=== PATIENT | male | born 1960 | race Caucasian/White ===

== ENCOUNTER 2016-12-02 18:24 | Emergency (ER) | payer OTHER ==
--- NOTE | 2016-12-02 18:29 | PDOC ---
Rapid Medical Evaluation Time Seen by Provider: 12/02/16 18:27 Medical Evaluation: Allergies Allergy/AdvReac Type Severity Reaction Status Date / Time filgrastim [From Neupogen] Allergy Verified 12/02/16 18:26 pegfilgrastim [From Neulasta] Allergy Verified 12/02/16 18:26 12/02/16 18:27 I have performed a brief in-person evaluation of this patient. The patient presents with a chief complaint of: req foe HIV testing Pertinent physical exam findings: L/S CTAB The patient will proceed to the ED for further evaluation. Pt had sexual intercourse with a male HIV+ partner x2d ago. Noticed the "tip of his condom was broken". Pt last tested in Jun 2016. Partner status " non detectable level and on daily medication"
[2016-12-02 18:32] VITALS: BP 156/89; PULSE 78; TEMP 98.2; BMI 28.6
--- NOTE | 2016-12-02 19:27 | PDOC ---
Post Exposure HPI - General Chief Complaint: Non EmpBld/Body Flud Exposure Stated Complaint: EVALUATION Time Seen by Provider: 12/02/16 18:27 History Source: Patient Exam Limitations: No Limitations - History of Present Illness Initial Comments: 12/02/16 19:23 Patient is here status post exposure to open known HIV-positive patient. Is homosexual, had anal intercourse, are using condoms the condom broke. Patient states partner revealed his positive HIV status 24 hours after exposure, however is taking antiretrovirals and his viral load is undetectable. Patient was evaluated at HIV testing center who recommended him coming to tertiary center for evaluation for prophylaxis medications and testing. States most recent HIV and hepatitis C testing done 3 months ago was negative, and otherwise healthy. 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 No: Symptoms Reported, Fever, Loss of Appetite, Malaise HEENTM: Yes: See HPI. No: Symptoms Reported Respiratory: Yes: See HPI. No: Symptoms reported, Cough ABD/GI: Yes: See HPI. No: Symptoms Reported, Nausea Integumentary: Yes: See HPI. No: Symptoms Reported All Other Systems: Reviewed and Negative *Physical Exam - Vital Signs Last Vital Signs Temp Pulse Resp BP Pulse Ox 98.2 F 78 18 156/89 100 12/02/16 18:28 12/02/16 18:28 12/02/16 18:28 12/02/16 18:28 12/02/16 18:28 - Physical Exam General Appearance: Yes: Nourished, Appropriately Dressed, Apparent Distress, Mild Distress HEENT: positive: [place], Normal ENT Inspection, TMs Normal, Pharynx Normal Neck: positive: Supple Respiratory/Chest: positive: Lungs Clear, Normal Breath Sounds Extremity: positive: Normal Capillary Refill, Normal Inspection, Normal Range of Motion Integumentary: positive: Normal Color, Dry, Warm 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 Will follow-up with his private physician for repeat baseline testing within the week, and follow-up as needed *DC/Admit/Observation/Transfer Diagnosis at time of Disposition: HIV exposure - Discharge Dispostion Disposition: HOME Condition at time of disposition: Stable Admit: No - Referrals - Patient Instructions Printed Discharge Instructions: How to Handle Body Fluid Exposure -- Non- Healthcare Worker (At Home, [facility]gi Additional Instructions: Follow-up with your physician for baseline hepatitis B and C and HIV testing and possible baseline chemistries and CBC for potential future need for treatment. - Post Discharge Activity Work/School Note: Back to Work
== END 2016-12-02 19:46 | disposition home or self-care (01) ==
LOC: JERFT 18:24
DX: Z11.3 Encounter for screening for infections with a predominantly sexual mode of transmission (principal)
CPT/HCPCS: 99281-25